=== PATIENT | male | born 1980 | race Two or more races ===

== ENCOUNTER 2016-08-13 14:42 | Inpatient (IN) | payer SELFPAY ==
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
[2016-08-13] MEDS ORDERED: HYDROCODONE/APAP 5/325 TAB ONE (15:05)
[2016-08-13] MEDS ORDERED: HYDROCODONE/APAP 5/325 TAB PO ONE (15:08)
[2016-08-13] MEDS ORDERED: NS 1,000 ML IV ONE (15:51)
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
[2016-08-13 16:46] LABS: % IMMATURE GRANULYOCYTES 0.2 % (0.0-1.1); ABSOLUTE IMMATURE GRANULOCYTES 0.01 10^3/uL (0.00-0.10); ADD DIFF? NO; ADD MORPH? NO; ADD SCAN? NO; ATYPICAL LYMPHOCYTE FLAG 0 (0-99); FRAGMENT RBC FLAG 0 (0-99); HEMATOCRIT 48.4 % (40.0-51.0); HEMOGLOBIN 17.4 g/dL (13.7-17.5); LEFT SHIFT FLG 0 (0-99); LIPEMIA HEMOLYSIS FLAG 90 (0-99); MEAN CELL VOLUME 91.8 fL (81.5-99.8); MEAN PLATELET VOLUME 9.2 fL (8.7-11.7); PLATELET CLUMPS FLAG 0 (0-99); PLATELET COUNT 181 10^3/uL (150-400); RED BLOOD CELL COUNT 5.27 10^6/uL (4.40-6.38); RED CELL DISTRIBUTION WIDTH 13.5 % (11.5-15.2)
[2016-08-13 17:18] LABS: ANION GAP 22 mEq/L (8-16); CALCIUM 8.8 mg/dL (8.5-10.4); CARBON DIOXIDE 24 mEq/l (22-31); CHLORIDE 98 mEq/L (97-110); CREATININE 0.9 mg/dL (0.7-1.3); ETHANOL SERUM 269 mg/dL (0-10); GLOMERULAR FILTRATION RATE > 60; GLUCOSE 110 mg/dL (70-100); POTASSIUM 4.2 mEq/L (3.5-5.2); SODIUM 144 mEq/L (134-144)
[2016-08-14] MEDS ORDERED: QUEtiapine FUMARATE 50 MG TAB PO ONE (04:53)
[2016-08-14] MEDS ORDERED: QUEtiapine FUMARATE 200 MG TAB PO ONE (05:08)
[2016-08-14] MEDS ORDERED: NICOTINE POLACRILEX 2 MG GUM B PRN (10:15)
[2016-08-14] MEDS ORDERED: MAGNESIUM HYDROXIDE 30 ML UDCUP PO PRN (10:15)
[2016-08-14] MEDS ORDERED: OLANZapine DISINTEGR 10 MG TAB PO PRN (10:15)
[2016-08-14] MEDS ORDERED: MAG HYDROX/AL HYDROX/SIMETH 30 ML UDCUP PO PRN (10:15)
[2016-08-14] MEDS: DIVALPROEX NA 250 MG TAB PO SCH (11:51)
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
[2016-08-14] MEDS: IBUPROFEN 600 MG TAB PO PRN (17:01)
[2016-08-14] MEDS: MIRTAZAPINE 15 MG TAB PO SCH (19:19)
[2016-08-14] MEDS: PRAZOSIN HCL 5 MG CAP PO SCH (19:20)
[2016-08-14] MEDS ORDERED: QUEtiapine FUMARATE 50 MG TAB PO SCH (21:00)
[2016-08-14] MEDS ORDERED: QUEtiapine FUMARATE 25 MG TAB PO SCH (21:00)
[2016-08-14] MEDS ORDERED: MIRTAZAPINE 30 MG TAB PO SCH (21:00)
[2016-08-15] MEDS: DIVALPROEX NA 250 MG TAB PO SCH (09:14)
[2016-08-15] MEDS: ACETAMINOPHEN 325 MG TAB PO PRN ×2 (09:19→20:09)
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
[2016-08-15] MEDS: IBUPROFEN 600 MG TAB PO PRN (15:23)
[2016-08-15] MEDS: PRAZOSIN HCL 5 MG CAP PO SCH (20:09)
[2016-08-15] MEDS: MIRTAZAPINE 15 MG TAB PO SCH (20:09)
[2016-08-15] MEDS: QUEtiapine FUMARATE 50 MG TAB PO SCH (20:09)
[2016-08-16] MEDS: DIVALPROEX NA 250 MG TAB PO SCH (08:15)
[2016-08-16] MEDS: IBUPROFEN 600 MG TAB PO PRN ×3 (08:19→20:15)
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
[2016-08-16] MEDS: ACETAMINOPHEN 325 MG TAB PO PRN (16:31)
[2016-08-16] MEDS: QUEtiapine FUMARATE 50 MG TAB PO SCH (20:12)
[2016-08-16] MEDS: MIRTAZAPINE 15 MG TAB PO SCH (20:12)
[2016-08-16] MEDS: PRAZOSIN HCL 5 MG CAP PO SCH (20:12)
[2016-08-16] MEDS: LORazepam 0.5 MG TAB PO PRN (20:15)
[2016-08-17] MEDS: DIVALPROEX NA 250 MG TAB PO SCH (09:43)
[2016-08-17] MEDS: ACETAMINOPHEN 325 MG TAB PO PRN (09:47)
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
[2016-08-17] MEDS: LORazepam 0.5 MG TAB PO PRN ×2 (12:12→21:02)
[2016-08-17] MEDS: IBUPROFEN 600 MG TAB PO PRN (21:02)
[2016-08-17] MEDS: QUEtiapine FUMARATE 50 MG TAB PO SCH (21:03)
[2016-08-17] MEDS: PRAZOSIN HCL 5 MG CAP PO SCH (21:04)
[2016-08-17] MEDS: MIRTAZAPINE 15 MG TAB PO SCH (21:04)
[2016-08-18] MEDS: LORazepam 0.5 MG TAB PO PRN ×2 (08:36→21:30)
[2016-08-18] MEDS: DIVALPROEX NA 250 MG TAB PO SCH (08:36)
[2016-08-18] MEDS: ACETAMINOPHEN 325 MG TAB PO PRN ×2 (08:36→16:39)
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
[2016-08-18] MEDS: IBUPROFEN 600 MG TAB PO PRN (21:02)
[2016-08-18] MEDS: QUEtiapine FUMARATE 50 MG TAB PO SCH (21:28)
[2016-08-18] MEDS: PRAZOSIN HCL 5 MG CAP PO SCH (21:28)
[2016-08-18] MEDS: MIRTAZAPINE 15 MG TAB PO SCH (21:28)
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
[2016-08-19] MEDS: DIVALPROEX NA 250 MG TAB PO SCH (09:36)
[2016-08-19] MEDS: LORazepam 0.5 MG TAB PO PRN ×2 (09:39→18:08)
[2016-08-19] MEDS: ACETAMINOPHEN 325 MG TAB PO PRN (18:08)
[2016-08-19] MEDS: QUEtiapine FUMARATE 50 MG TAB PO SCH (21:55)
[2016-08-19] MEDS: PRAZOSIN HCL 5 MG CAP PO SCH (21:55)
[2016-08-19] MEDS: MIRTAZAPINE 15 MG TAB PO SCH (21:55)
[2016-08-19] MEDS: IBUPROFEN 600 MG TAB PO PRN (21:55)
[2016-08-20] MEDS: LORazepam 0.5 MG TAB PO PRN (08:33)
[2016-08-20] MEDS: DIVALPROEX NA 250 MG TAB PO SCH (08:33)
[2016-08-20] MEDS: ACETAMINOPHEN 325 MG TAB PO PRN (08:35)
[2016-08-20 11:20] VITALS: BP 126/89; PULSE 115; RESP 16; TEMP 97.6; O2SAT 96
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
== END 2016-08-20 12:45 | disposition home or self-care (01) | DRG 885 ==
LOC: BBEH 08-14 08:28
PROVIDERS: ADMIT Psychiatry & Neurology Psychiatry; ATTEND Psychiatry & Neurology Psychiatry
DX: F33.0 Major depressive disorder, recurrent, mild (principal); F43.10 Post-traumatic stress disorder, unspecified; I25.2 Old myocardial infarction; I25.10 Atherosclerotic heart disease of native coronary artery without angina pectoris; S83.92XA Sprain of unspecified site of left knee, initial encounter; V17 Pedal cycle rider injured in collision with fixed or stationary object; Y93.55 Activity, bike riding; Z72.89 Other problems related to lifestyle
CPT/HCPCS: 80305; G0480; L1830

== ENCOUNTER 2016-09-08 17:45 | Emergency (ER) | payer SELFPAY ==
--- NOTE | 2016-09-08 18:22 | EDPHY ---
HPI/HX/ROS/PE/MDM Narrative: Chief complaint: Suicidal, wrist laceration, alcohol intoxication HPI: Patient presenting feeling suicidal having sustained a superficial laceration to his right wrist. Patient states he has a long history PTSD is on multiple medications. He has had increasing stressors in that his girlfriend month ago from cancer. He does admit to drinking alcohol today. He is being actively suicidal. Denies any other ingestions. Has been taking his medications as prescribed. No recent fevers or chills. No cough. Denies hallucinations. Denies homicidal thoughts. ROS: 10 point Review of Systems is negative except as noted in the HPI. Physical exam: Gen: Awake, Alert, No Distress HEENT: Ears: Bilateral TMs are normal, no erythema or bulging. External auditory canals are clear. Nose: no rhinorrhea Eyes: PERRLA, EOMI Mouth: Moist mucosa Neck: Supple, no JVD Chest: nontender, lungs clear to auscultation Heart: S1, S2 normal, no murmur Abd: Soft, non-tender, no guarding Back: no CVA tenderness, no midline tenderness Ext: no edema, non-tender, right wrist has a superficial laceration on the volar surface of his wrist only through the epidermis. No active bleeding. No other structures involved. Full flexion extension. Sensations intact in the radial, median, ulnar nerve distribution. Skin: no rash Neuro: CN II-XII intact, Sensation grossly intact, Strength 5/5 in bilateral upper and lower extremities (Henok Solares) Care assumed at 6:45 a.m. with plan for psychiatric evaluation when sober. Vital signs at 6:00 a.m. include blood pressure 107/61, heart rate 108, respiratory rate 16, 94% oxygen saturation. 1016: Patient had mental health evaluation. At this time is no longer suicidal and has follow-up tomorrow with [facility]. Recommendation of Dr. Curtis to discharge the patient with followup. (Armand Smalls) ED Course: Patient is intoxicated suicidal with a history of depression and suicide attempts in the past. He has a superficial wrist laceration which has been dressed. He will require medical clearance and mental health evaluation. [address] patient signed out to Dr. Hawkins pending sobriety, medical clearance and mental health evaluation. (Henok Solares) 6:30 a.m.- The patient has been stable throughout my shift, metabolizing his alcohol. He will be medically clear once sober and then can be evaluated by mental health. The case will be signed out to Dr. Smalls. ([facility], [place]) - Data Points Laboratory Results: Laboratory Results 09/08/16 18:20 09/08/16 18:20 09/08/16 23:20 Urine Opiates Screen NEGATIVE (NEGATIVE) Urine Barbiturates NEGATIVE (NEGATIVE) Ur Phencyclidine Scrn NEGATIVE (NEGATIVE) Ur Amphetamine Screen NEGATIVE (NEGATIVE) U Benzodiazepines Scrn NEGATIVE (NEGATIVE) Urine Cocaine Screen NEGATIVE (NEGATIVE) U Marijuana (THC) Screen NEGATIVE (NEGATIVE) Medications Given: Discontinued Medications Mirtazapine (Remeron) 30 mg PO EDNOW ONE Stop: 09/08/16 22:36 Last Admin: 09/08/16 23:17 Dose: 30 mg Quetiapine Fumarate (Seroquel) 300 mg PO ONCE ONE Stop: 09/08/16 23:01 Last Admin: 09/08/16 23:17 Dose: 300 mg Quetiapine Fumarate (Seroquel) 200 mg PO ONCE ONE Stop: 09/08/16 23:01 Last Admin: 09/08/16 23:17 Dose: 200 mg General Time Seen by Provider: 09/08/16 18:08 Initial Vital Signs: Initial Vital Signs Temperature (C) 36.8 C 09/08/16 17:58 Heart Rate 110 H 09/08/16 17:58 Respiratory Rate 19 09/08/16 17:58 O2 Sat (%) 90 L 09/08/16 17:58 O2 Delivery Mode Room Air O2 (L/minute) 93 Allergies/Adverse Reactions: No Known Allergies Allergy (Verified 04/01/16 11:33) Home Medications: Medication Instructions Recorded Divalproex ER [Depakote ER 250 MG 250 mg PO DAILY 03/27/16 (*)] Ibuprofen [Motrin (*)] 600 mg PO Q6HRS PRN #0 tab 08/20/16 LORazepam [Ativan (*)] 0.5 - 1 mg PO Q6HRS PRN #30 tab 08/20/16 Prazosin HCl [Minipress 5mg (*)] 5 mg PO HS #30 cap 08/20/16 QUEtiapine FUMARATE [Seroquel 50 150 mg PO HS #30 tab 08/20/16 mg (*)] Mirtazapine [Remeron soltab 15 mg 35 mg PO DAILY 09/08/16 (*)] Departure - Departure Disposition: Home, Routine, Self-Care Clinical Impression: Abrasion of wrist, right Qualifiers: Encounter type: initial encounter Qualifier Code: (S60.811A) Abrasion of right wrist, initial encounter Alcohol intoxication Qualifiers: Complication of substance-induced condition: uncomplicated Qualifier Code: ( F10.120) Alcohol abuse with intoxication, uncomplicated Condition: Good Instructions: Alcohol Intoxication (ED), Abrasion (ED) Referrals: [facility] [Outside] - As per Instructions
[2016-09-08 18:28] LABS: % IMMATURE GRANULYOCYTES 0.2 % (0.0-1.1); ABSOLUTE IMMATURE GRANULOCYTES 0.02 10^3/uL (0.00-0.10); ADD DIFF? NO; ADD MORPH? NO; ADD SCAN? NO; ATYPICAL LYMPHOCYTE FLAG 0 (0-99); FRAGMENT RBC FLAG 0 (0-99); HEMATOCRIT 50.2 % (40.0-51.0); HEMOGLOBIN 17.6 g/dL (13.7-17.5); LEFT SHIFT FLG 0 (0-99); LIPEMIA HEMOLYSIS FLAG 90 (0-99); MEAN CELL HEMOGLOBIN 33.2 pg (27.9-34.1); MEAN CELL HEMOGLOBIN CONCENTR. 35.1 g/dL (32.4-36.7); MEAN CELL VOLUME 94.7 fL (81.5-99.8); MEAN PLATELET VOLUME 9.4 fL (8.7-11.7); PLATELET CLUMPS FLAG 10 (0-99); PLATELET COUNT 201 10^3/uL (150-400)
[2016-09-08 18:56] LABS: ANION GAP 21 mEq/L (8-16); CALCIUM 9.1 mg/dL (8.5-10.4); CARBON DIOXIDE 19 mEq/l (22-31); CHLORIDE 107 mEq/L (97-110); CREATININE 0.9 mg/dL (0.7-1.3); GLOMERULAR FILTRATION RATE > 60; GLUCOSE 95 mg/dL (70-100); SODIUM 147 mEq/L (134-144)
[2016-09-08 19:16] LABS: ETHANOL SERUM 366 mg/dL (0-10)
[2016-09-08] MEDS ORDERED: QUEtiapine FUMARATE 25 MG TAB PO ONE (22:34)
[2016-09-08] MEDS ORDERED: MIRTAZAPINE 30 MG TAB PO ONE (22:35)
[2016-09-08] MEDS ORDERED: QUEtiapine FUMARATE 300 MG TAB PO ONE (23:00)
[2016-09-08] MEDS ORDERED: QUEtiapine FUMARATE 200 MG TAB PO ONE (23:00)
[2016-09-09 10:53] VITALS: RESP 18
[2016-09-09 10:56] VITALS: BP 118/83; PULSE 78; TEMP 97.5; O2SAT 96
[2016-09-09] MEDS ORDERED: PRAZOSIN HCL 5 MG CAP PO ONE (22:36)
[2016-09-09] MEDS ORDERED: DIVALPROEX ER 250 MG TAB PO ONE (22:37)
== END 2016-09-09 10:57 | disposition home or self-care (01) ==
DX: S61.511A Laceration without foreign body of right wrist, initial encounter (principal); F10.120 Alcohol abuse with intoxication, uncomplicated; X78.9XXA Intentional self-harm by unspecified sharp object, initial encounter
CPT/HCPCS: 80305; G0480

== ENCOUNTER 2016-12-02 17:25 | Emergency (ER) | payer SELFPAY ==
[2016-12-02 17:45] VITALS: BP 129/94; PULSE 90; RESP 18; TEMP 98.1; O2SAT 91
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
[2016-12-02] MEDS ORDERED: IBUPROFEN 600 MG TAB PO ONE (18:17)
== END 2016-12-02 18:21 | disposition home or self-care (01) ==
DX: S93.401A Sprain of unspecified ligament of right ankle, initial encounter (principal); X58.XXXA Exposure to other specified factors, initial encounter